=== PATIENT | female | born 1955 | race Caucasian/White ===

== ENCOUNTER 2023-05-01 14:31 | Emergency (ER) | payer OTHER, BC, SELFPAY ==
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
[2023-05-01 14:38] VITALS: BP 170/80; BP 176/93; PULSE 70; PULSE 82; RESP 16; TEMP 36.7; O2SAT 99; BMI 23.6
[2023-05-01 16:58] VITALS: BP 158/86; PULSE 86; RESP 18; TEMP 36.7; O2SAT 99
== END 2023-05-01 17:00 | disposition home or self-care (01) ==
PROVIDERS: Emergency Provider Emergency Medicine
DX: Z04.1 Encounter for examination and observation following transport accident (principal); R51.9 Headache, unspecified
CPT/HCPCS: 70450; 72125; 99282; 99284